=== PATIENT | female | born 1965 | race Caucasian/White ===

== ENCOUNTER 2021-11-18 08:23 | Observation (INO) ==
--- NOTE | 2021-11-18 08:42 | Emergency Department Note ---
Impression & Plan Anemia ADMIT ED Provider Note HPI: Patient is a 56-year-old female who currently resides at [facility] for alcohol detox, presents the emergency department with a chief complaint of dizziness and hypotension with positional changes. Patient states is been ongoing for about the past week. She states that several days ago she was getting out of the shower and felt as if she was going to pass out. Patient states that they have been taking her blood pressure when she has these episodes and it has been as low as 74 systolic. Patient was concerned about low blood pressure again today and therefore came to the ED for further assessment. On arrival patient is noted to be hypotensive at 98/64, pulse rate of 100, she is otherwise hemodynamically stable and saturating well on room air on my initial assessment. She is alert and oriented x3 and in no acute distress, denies any chest pain or shortness of breath. ROS: -General: Concern for hypotension -Neuro: Dizziness with positional changes *10 point review systems was conducted and is otherwise negative unless stated above *Outpatient medications and allergy history reviewed PE: General: Alert, NAD HEENT: Normocephalic, atraumatic Eyes: Extraocular eye movement is intact, no scleral erythema Pulmonary: Clear to auscultation bilaterally, no wheezing Cardio: Regular rate and rhythm GI: Abdomen is soft, nontender : No suprapubic tenderness MSK: No evidence of trauma or malformation of the extremities, no edema Skin: No evidence of rash Neuro: Alert, no focal deficits Psychiatric: Cooperative pvc monitor: - An order was placed for continuous cardiac monitoring - Patient was noted to be in sinus rhythm with rate of 80 EKG: Rate: 86 Rhythm: Normal sinus rhythm Intervals: Within normal limits ST changes: No ST elevation Time: 0834 Medical Decision Making: Patient presented to the emergency department with concern for hypotension at her rehabilitation facility where she is currently residing for the past several weeks for alcohol detox. She has had issues with dizziness mostly with positional changes, states she had an episode several days ago where she tells me that she nearly passed out. On arrival to the ED the patient is mildly tac hycardic at 100, blood pressure is in the 90s systolic, she is in no acute distress on my initial evaluation. IV was established, lab work obtained, patient was placed on equipment monitor phototypesetting, lab work shows leukocytosis of 14.6, slight left shift, anemia of 9.0 which is new from previous lab work that was done just 2 weeks ago when her hemoglobin was 12.0, patient denies any melena or blood per rectum. Denies any hematemesis. This is a normocytic anemia. Occult stool test was done at the bedside and is negative. Unclear source of the patient's anemia at this time. Patient was given IV fluid bolus and her initial repeat pressure was in the 80s systolic. Therefore she was ordered 2 units packed red blood cells for transfusion. Patient was consented at the bedside. On recheck pressure before transfusion is 100/65. Patient remains in no acute distress, saturating well on room air, heart rate is down trended with IV fluids. I discussed the above findings with the on-call hospitalist for [facility], Dr. Padilla, and the patient will be admitted to a telemetry bed for further management and diagnostic work-up of anemia with unknown source. She was ordered broad-spectrum antibiotics following a second fluid bolus which included vancomycin and cefepime as she does have a leukocytosis in addition to her hypotension and mild tachycardia on presentation. No obvious source for inf ection with negative chest x-ray, urinalysis pending, however given the patient's hypotension leukocytosis and presenting tachycardia I do feel it prudent to initiate broad-spectrum antibiotics, blood cultures were drawn prior to initiation of antibiotics. Patient was given 2 L normal saline bolus and none further over concern for possible blood loss anemia as a source of her hypotension, avoidance of hemodilution, and preference for packed red blood cell transfusion for potential volume depletion following the initial 2 L NSS bolus. Patient is in agreement to the above plan and she was admitted in stable condition for further care. * CRITICAL CARE TIME: ( 40 ) minutes -Management of symptomatic anemia with hypotension requiring packed red blood cell transfusion, initiation of broad-spectrum antibiotics for sepsis, time spent at the bedside, interpretation of diagnostic studies, discussion with other physicians and arrangement of admission Diagnosis: 1. Symptomatic anemia, acute, new onset 2. Hypotension 3. Leukocytosis 4. Hyperglycemia without evidence of DKA Disposition: Admission Ji Evans DO Emergency Medicine Past Med/Surg History Medical History (Updated 11/18/21 @ 10:03 by Ji Evans DO) Alcohol abuse Alcohol withdrawal Social History Smoking Status: Current every day smoker Tobacco Type: Cigarettes Preferred Language: Dutch Feels Safe at Home: Yes Allergies Allergies Allergy/AdvReac Type Severity Reaction Status Date / Time No Known Allergies Allergy Unverified 11/18/21 09:56 Home Meds Home Medications Medication Instructions Recorded Confirmed doxepin 25 mg capsule 25 mg PO HS 11/04/21 11/18/21 prazosin 1 tab PO HS 11/04/21 11/18/21 chlordiazepoxide HCl 25 mg capsule 0 mg PO DAILY 11/18/21 11/18/21 cyclobenzaprine 10 mg tablet 10 mg PO HS 11/18/21 11/18/21 diphenhydramine HCl 25 mg capsule 25 mg PO HS PRN 11/18/21 11/18/21 ibuprofen 200 mg tablet 200 mg PO Q6H PRN 11/18/21 11/18/21 Results & Data (ED) Vital Signs Vital Signs - 24 hr 11/18/21 08:27 11/18/21 08:58 11/18/21 08:59 Temperature 36.5 C Temperature Source Temporal Artery Scan Pulse Rate - Lying 85 Pulse Rate - Sitting 87 Pulse Rate - Standing 107 H Pulse Rate 100 H Respiratory Rate 18 Respiratory Effort / Characteristics Non-Labored Respiratory Depth Blood Pressure - Lying 98/62 L Blood Pressure - Sitting 91/63 L Blood Pressure- Standing 83/62 L Blood Pressure 98/64 L Blood Pressure Mean 75 Pulse Oximetry 98 Oxygen Delivery Method Room Air Room Air Sepsis Recent Fever Within 48 Hours No Sepsis New/Unexplained Change in Mental Status No Sepsis Action Taken by Nursing No Action Required 11/18/21 09:01 Temperature Temperature Source Oral Pulse Rate - Lying Pulse Rate - Sitting Pulse Rate - Standing Pulse Rate Respiratory Rate Respiratory Effort / Characteristics Respiratory Depth Normal Blood Pressure - Lying Blood Pressure - Sitting Blood Pressure- Standing Blood Pressure Blood Pressure Mean Pulse Oximetry Oxygen Delivery Method Room Air Sepsis Recent Fever Within 48 Hours Sepsis New/Unexplained Change in Mental Status Sepsis Action Taken by Nursing Laboratory Data Result diagrams: 11/18/21 08:50 11/18/21 08:50 Lab Results 11/18/21 11/18/21 11/18/21 Range/Units 08:50 08:50 08:50 WBC 14.68 H (4.8-10.8) K/uL RBC 2.88 L (4.2-5.4) M/uL Hgb 9.0 L (12.0-16.0) g/dL Hct 27.6 L (37-47) % MCV 95.8 (80-100) fL MCH 31.3 (25-34) pg MCHC 32.6 (32-36) g/dL RDW Std Deviation 55.1 H (36.4-46.3) fL RDW Coeff of Joel 15.8 H (11.5-14.5) % Plt Count 414 H (130-400) K/uL MPV 9.2 (7.4-10.4) fL Immature Gran % (Auto) 0.4 % Neut % (Auto) 81.6 % Lymph % (Auto) 11.2 % [place] % (Auto) 6.1 % Eos % (Auto) 0.4 % Baso % (Auto) 0.3 % Neut # (Auto) 11.98 H (1.4-6.5) K/uL Lymph # (Auto) 1.65 (1.2-3.4) K/uL [place] # (Auto) 0.89 H (0.11-0.59) K/uL Eos # (Auto) 0.06 (0-0.5) K/uL Baso # (Auto) 0.04 (0-0.2) K/uL Immature Gran # (Auto) 0.06 H (0.00-0.02) K/uL PT 11.6 (9.0-12.0) Seconds INR 1.1 (0.9-1.1) APTT 31.2 H (21.0-31.0) Seconds PTT Ratio 1.1 Sodium 133 L (136-145) mmol/L Potassium 4.4 (3.5-5.1) mmol/L Chloride 102 (98-107) mmol/L Carbon Dioxide 22 (21-32) mmol/L Anion Gap 9 (3-11) BUN 10 (6-23) mg/dl Creatinine 0.60 (0.6-1.2) mg/dl Est Cr Clr Drug Dosing 106.9 ml/min Est GFR ( Amer) 118.9 ml/min Est GFR (Non-Af Amer) 102.6 ml/min BUN/Creatinine Ratio 16.7 (10-20) Glucose 232 H (70-99(Fasting)) mg/dl Lactate (0.4-2.0) mmol/L Calcium 8.8 (8.5-10.1) mg/dl Magnesium 1.8 (1.7-2.4) mg/dl Total Bilirubin 0.4 (0.2-1.0) mg/dl AST 9 L (13-39) U/L ALT 7 (7-52) U/L Alkaline Phosphatase 120 H (34-104) U/L Total Protein 6.5 (6.0-8.3) gm/dl Albumin 3.1 L (3.4-5.0) gm/dl Globulin 3.4 (2.5-4.0) gm/dl Albumin/Globulin Ratio 0.9 (0.9-2) Procalcitonin (0-0.5) ng/ml Crossmatch 11/18/21 11/18/21 11/18/21 Range/Units 08:50 09:17 09:23 WBC (4.8-10.8) K/uL RBC (4.2-5.4) M/uL Hgb (12.0-16.0) g/dL Hct (37-47) % MCV (80-100) fL MCH (25-34) pg MCHC (32-36) g/dL RDW Std Deviation (36.4-46.3) fL RDW Coeff of Joel (11.5-14.5) % Plt Count (130-400) K/uL MPV (7.4-10.4) fL Immature Gran % (Auto) % Neut % (Auto) % Lymph % (Auto) % [place] % (Auto) % Eos % (Auto) % Baso % (Auto) % Neut # (Auto) (1.4-6.5) K/uL Lymph # (Auto) (1.2-3.4) K/uL [place] # (Auto) (0.11-0.59) K/uL Eos # (Auto) (0-0.5) K/uL Baso # (Auto) (0-0.2) K/uL Immature Gran # (Auto) (0.00-0.02) K/uL PT (9.0-12.0) Seconds INR (0.9-1.1) APTT (21.0-31.0) Seconds PTT Ratio Sodium (136-145) mmol/L Potassium (3.5-5.1) mmol/L Chloride (98-107) mmol/L Carbon Dioxide (21-32) mmol/L Anion Gap (3-11) BUN (6-23) mg/dl Creatinine (0.6-1.2) mg/dl Est Cr Clr Drug Dosing ml/min Est GFR ( Amer) ml/min Est GFR (Non-Af Amer) ml/min BUN/Creatinine Ratio (10-20) Glucose (70-99(Fasting)) mg/dl Lactate 1.0 (0.4-2.0) mmol/L Calcium (8.5-10.1) mg/dl Magnesium (1.7-2.4) mg/dl Total Bilirubin (0.2-1.0) mg/dl AST (13-39) U/L ALT (7-52) U/L Alkaline Phosphatase (34-104) U/L Total Protein (6.0-8.3) gm/dl Albumin (3.4-5.0) gm/dl Globulin (2.5-4.0) gm/dl Albumin/Globulin Ratio (0.9-2) Procalcitonin 0.10 (0-0.5) ng/ml Crossmatch See Detail Administered Medications Discontinued Medications Sodium Chloride (Nss 1000ml) 1,000 mls @ 999 mls/hr IV .Q1H1M TEJAL Stop: 11/18/21 09:45 Last Admin: 11/18/21 08:50 Dose: 999 mls/hr Documented by: [id number] Imaging Data Radiologist's Impression: Chest X-Ray 11/18/21 08:32 XR chest 1V portable CLINICAL HISTORY: SEPSIS TECHNIQUE: Single frontal radiograph of the chest was obtained. Comparison: Comparison is made to chest radiograph 11/04/2021 FINDINGS: No lines and tubes are seen. The cardiomediastinal silhouette is normal. The lungs are clear. No evidence of pleural effusion or pneumothorax. IMPRESSION: No acute abnormalities and in particular no evidence of pneumonia. ACT 112: Negative or not required by law. Electronically signed by: Lino Trotter M.D. 11/18/2021 9:07 AM Discharge Plan Visit Data Chief Complaint: Hypotension Stated Complaint: HYPOTENSITON,DIZZY,LIGHTHEADED,HEADACHE ED Provider: Ji Evans Discharge Problem: Anemia Forms Stand Alone Forms: My [facility] Prescriptions Prescriptions: No Action doxepin 25 mg capsule 25 mg PO HS RF: 0 prazosin 1 tab PO HS RF: 0 cyclobenzaprine [Flexeril] 10 mg Tablet 10 mg PO HS RF: 0 chlordiazepoxide HCl 25 mg capsule 0 mg PO DAILY RF: 0 diphenhydramine HCl 25 mg Capsule 25 mg PO HS PRN (Reason: Sleep) RF: 0 ibuprofen 200 mg Tablet 200 mg PO Q6H PRN (Reason: Pain) RF: 0 Referrals Referrals: PCP,NO [Physician] - Discharge Problem: Anemia Qualifiers: Anemia type: unspecified type Qualified Code(s): D64.9 - Anemia, unspecified
[2021-11-18] MEDS ORDERED: SODIUM CHLORIDE 0.9% 1000ML 1,000 ML IV SCH (08:45)
[2021-11-18 09:07] LABS: Basophils # (auto) 0.04 K/uL (0-0.2); Basophils % (auto) 0.3 %; Eosinophils # (auto) 0.06 K/uL (0-0.5); Eosinophils % (auto) 0.4 %; Hematocrit (blood only) 27.6 % (37-47); Immature Granulocytes # (auto) 0.06 K/uL (0.00-0.02); Immature Granulocytes % (auto) 0.4 %; Lymphocytes # (auto) 1.65 K/uL (1.2-3.4); Lymphocytes % (auto) 11.2 %; Mean Corpuscular Hemoglobin 31.3 pg (25-34); Mean Corpuscular Hgb Conc 32.6 g/dL (32-36); Mean Corpuscular Volume 95.8 fL (80-100); Mean Platelet Volume 9.2 fL (7.4-10.4); Monocytes # (auto) 0.89 K/uL (0.11-0.59); Monocytes % (auto) 6.1 %; Neutrophils # (auto) 11.98 K/uL (1.4-6.5); Neutrophils % (auto) 81.6 %; Platelet Count 414 K/uL (130-400); RDW Coefficient of Variation 15.8 % (11.5-14.5); RDW Standard Deviation 55.1 fL (36.4-46.3); Red Blood Count 2.88 M/uL (4.2-5.4); White Blood Count 14.68 K/uL (4.8-10.8)
--- NOTE | 2021-11-18 09:08 | XRay Report ---
XR chest 1V portable CLINICAL HISTORY: SEPSIS TECHNIQUE: Single frontal radiograph of the chest was obtained. Comparison: Comparison is made to chest radiograph 11/04/2021 FINDINGS: No lines and tubes are seen. The cardiomediastinal silhouette is normal. The lungs are clear. No evid ence of pleural effusion or pneumothorax. IMPRESSION: No acute abnormalities and in particular no evidence of pneumonia. ACT 112: Negative or not required by law. Electronically signed by: Lino Trotter M.D. 11/18/2021 9:07 AM
[2021-11-18 09:28] LABS: INR 1.1 (0.9-1.1); Partial Thromboplastin Ratio 1.1; Partial Thromboplastin Time 31.2 Seconds (21.0-31.0); Prothrombin Time 11.6 Seconds (9.0-12.0)
[2021-11-18 09:35] LABS: Albumin Globulin Ratio 0.9 (0.9-2); Albumin Level 3.1 gm/dl (3.4-5.0); BUN Creatinine Ratio 16.7 (10-20); Bilirubin,Total 0.4 mg/dl (0.2-1.0); Calcium 8.8 mg/dl (8.5-10.1); Creatinine Clr Calc Pharmacy 106.9 ml/min; Est GFR (African American) 118.9 ml/min; Est GFR (Non-African American) 102.6 ml/min; Globulin 3.4 gm/dl (2.5-4.0); Magnesium 1.8 mg/dl (1.7-2.4); Potassium 4.4 mmol/L (3.5-5.1); Total Protein 6.5 gm/dl (6.0-8.3)
[2021-11-18] MEDS ORDERED: SODIUM CHLORIDE 0.9% 250 ML IV PRN (09:36)
[2021-11-18] MEDS ORDERED: CEFEPIME 2,000 MG/20 ML VIAL IV STA (09:46)
[2021-11-18] MEDS ORDERED: VANCOMYCIN CONSULT ACTIVE PRN (09:46)
[2021-11-18] MEDS ORDERED: SODIUM CHLORIDE 0.9% 1000ML 1,000 ML IV ONE (09:46)
[2021-11-18] MEDS ORDERED: VANCOMYCIN HCL 1,500 MG in SODIUM CHLORIDE 0.9% 500 ML IV ONE (09:46)
--- NOTE | 2021-11-18 10:07 | History & Physical Report ---
Date of Service November 18, 2021 Assessment & Plan (1) Anemia: Plan: - Symptomatic, generalized weakness, dizziness, orthostatic hypotension x4 days. - Hgb 9.0, was 12.0 on 11/04. Normocytic. In the setting of daily NSAID use, history of alcohol abuse, as well as gastric bypass surgery in 2008 with development of gastric ulcer shortly after. - GI consult placed, did discuss the case with Dr. Gee who is recommending IV PPI twice daily and clear liquid diet for now. NPO at midnight for EGD in AM. - ED ordered two units pRBCs for transfusion. - Trend H/H 4 hours s/p transfusion. (2) Hypotension: Plan: - 2L NS in ED, hold off on further IVF as likely blood loss causing her hypotension. She is receiving blood transfusion. - Continue to monitor. (3) Leukocytosis: Plan: - WBC 14.68 with left shift, lactate 1.0, procalcitonin 0.10. No symptoms suggestive of infection or obvious source of infection based on labs and imaging collected, however urinalysis is still pending. - Treated empirically with vancomycin and cefepime in ED, given her elevated WBC and hypotension, tachycardia. Will hold off on further antibiotics until urinalysis is collected. - Blood cultures have been collected and sent. - Continue to trend on a.m. labs. (4) Alcohol abuse: Plan: - Vodka daily, last drink 11/04. She has been at [facility] alcohol rehabilitation since then. Likely out of withdrawal, reports she has been without withdrawal symptoms. - Continue clonidine, doxepin. (5) Compression fracture: Plan: - T12 and L1 vertebral fractures seen on lumbar XR from 11/04, has been taking Flexeril, as well as rotating between Tylenol and ibuprofen daily since then. - Holding ibuprofen, will continue Tylenol and Flexeril for pain control we will also order lidocaine patch. (6) Tobacco abuse: Plan: - Smokes 1/2 pack/day. - Nicotine patch ordered per patient request. (7) Insomnia: Plan: - States she has regularly been using melatonin and Benadryl for a long time for sleep. - Continue melatonin at night, Benadryl prn. Plan: - Admit to PCU. - SCDs for DVT PPx. - Full code. History of Present Illness Chief Complaint: hypotension Primary Care Provider: [facility] Ms. Boyer is a 56 y/o female with PMH of gastric bypass in 2008, alcohol and tobacco abuse, currently in outpatient rehab who presents today with several days of dizziness and hypotension. States on , she was in the shower when she felt dizzy and lightheaded. She was brought up to the nurses station at the facility, where they took her blood pressure and noticed it was low. They gave her salty snacks to bring it up, and since then had been checking her blood pressure at least daily and she states it has been ranging from as low as SBP 70s to 110s. She continues to be lightheaded with positional changes. She had an episode of nausea this morning before breakfast and has felt more weak in her lower extremities after walking distance she could previously tolerate, but otherwise denies any abdominal pain, ongoing nausea or vomiting, hematemesis, diarrhea, constipation, melena, or hematochezia. No fever chills, shortness of breath, chest pain, palpitations, dysuria, hematuria, increased urinary frequency, hesitancy, urinary retention. Was seen in our ED on 11/04 and had been diagnosed with compression fractures, has been rotating between ibuprofen and Tylenol regularly since then for pain control. She has history of gastric bypass surgery in 2008 followed shortly after by an ulcer around the side of the staple she reports. Reports they gave her Carafate, unaware of any other treatments she had for this at that time. Had an EGD and colonoscopy performed this past June 2021 at [facility] in [place], [place]. Was tested for celiac disease at the time due to family history, biopsy was negative for that. They also removed a polyp during colonoscopy, biopsied it came back as benign. Was no acute findings. Family history of brain cancer and grandfather, kidney cancer in brother, lymphoma in sister but no known history of esophageal, pancreatic, stomach, or colon cancer. In ED, she is hypotensive 98/54, tachycardic, HR 100, other vital signs wnl and stable. Labs significant for leukocytosis, WBC 14.68 with left shift procalcitonin 0.10, lactate 1.0. Hgb 9.0, normocytic, decreased from labs several weeks ago but this was 12.0. Coag panel within normal limits. Slightly hyponatremic sodium 133, glucose 232, alk phos 120. CXR did not show any acute abnormalities, no evidence for pneumonia. Blood cultures collected, sent. Patient's received broad-spectrum antibiotics of vancomycin and cefepime, as well as 2L NS bolus. Patient typed and crossed, consent completed in ED. Allergies Allergy/AdvReac Type Severity Reaction Status Date / Time No Known Allergies Allergy Unverified 11/18/21 09:56 Home Medications Medication Instructions Recorded Confirmed Type doxepin 25 mg capsule 25 mg PO HS 11/04/21 11/18/21 History prazosin 1 tab PO HS 11/04/21 11/18/21 History chlordiazepoxide HCl 25 mg capsule 0 mg PO DAILY 11/18/21 11/18/21 History cyclobenzaprine 10 mg tablet 10 mg PO HS 11/18/21 11/18/21 History diphenhydramine HCl 25 mg capsule 25 mg PO HS PRN 11/18/21 11/18/21 History ibuprofen 200 mg tablet 200 mg PO Q6H PRN 11/18/21 11/18/21 History Past Med/Surg History Medical History Alcohol abuse Alcohol withdrawal Anemia Compression fracture Social History Smoking Status: Current every day smoker Tobacco Type: Cigarettes Cigarettes Per Day: 1/2 pack; Do You Dip or Chew Tobacco: No; Hx Alcohol Use: Yes Alcohol type: hard liquor Hx Substance Use: No Preferred Language: Romanian Communication Ability: Effective Bundle Collector Required: No Beliefs That Will Affect Care: None Current Living Situation: Rehab Other Information That Helps Us Care for You: No Feels Safe at Home: Yes Safety Concerns: Feels Safe At This Time Assistive Devices: Glasses Review of Systems Review of Systems: Constitutional: Postural dizziness and bilateral lower extremity weakness with ambulation over the past week; no fever/chills, fatigue, myalgias, anorexia, night sweats Eyes: No diplopia, no worsening or blurred vision ENT: normal hearing, no trouble swallowing Respiratory: No cough, sputum, dyspnea at rest or on exertion Cardiovascular: No chest pain, tightness or palpitations Abdomen: No pain, nausea, vomiting, diarrhea or constipation : Denies dysuria, hematuria, increased urgency/frequency, urinary retention Musculoskeletal: No joint pain, calf pain, swelling Neurologic: No weakness, numbness/tingling, or balance problems Psychiatric: No anxiety or depression Skin: No rash or itch Physical Exam Physical Exam: General: awake, alert, no apparent distress Head: Normocephalic, atraumatic ENT: PERRL, EOMI, no pharyngeal exudate, mucous membranes moist Chest: Clear to auscultation, on room air, no adventitious breath sounds Cardiac: Regular rate and rhythm, no murmur, no JVD, normal peripheral pulses, good capillary refill Abdominal: NABS x 4 quadrants, soft, nontender to palpation, no rebound, guarding or tenderness Extremities: Normal inspection, no peripheral edema or erythema, calfs nonten sue to palpation Psych: Normal mood and affect Neuro: AAO x 3, strength intact bilaterally and rated 5/5, no motor deficits, speech is clear, no peripheral sensory deficits Skin: no rash or erythema Results & Data Results & Data ([facility]) Vital Signs (Past 12 Hours) Vital Signs Temp Pulse Resp BP Pulse Ox 11/18/21 08:27 36.5 C 100 H 18 98/64 L 98 Laboratory Results Abnormal lab results 11/18/21 11/18/21 11/18/21 Range/Units 08:50 08:50 08:50 WBC 14.68 H (4.8-10.8) K/uL RBC 2.88 L (4.2-5.4) M/uL Hgb 9.0 L (12.0-16.0) g/dL Hct 27.6 L (37-47) % RDW Std Deviation 55.1 H (36.4-46.3) fL RDW Coeff of Joel 15.8 H (11.5-14.5) % Plt Count 414 H (130-400) K/uL Neut # (Auto) 11.98 H (1.4-6.5) K/uL [place] # (Auto) 0.89 H (0.11-0.59) K/uL Immature Gran # (Auto) 0.06 H (0.00-0.02) K/uL APTT 31.2 H (21.0-31.0) Seconds Sodium 133 L (136-145) mmol/L Glucose 232 H (70-99(Fasting)) mg/dl AST 9 L (13-39) U/L Alkaline Phosphatase 120 H (34-104) U/L Albumin 3.1 L (3.4-5.0) gm/dl Crossmatch 11/18/21 Range/Units 09:23 WBC (4.8-10.8) K/uL RBC (4.2-5.4) M/uL Hgb (12.0-16.0) g/dL Hct (37-47) % RDW Std Deviation (36.4-46.3) fL RDW Coeff of Joel (11.5-14.5) % Plt Count (130-400) K/uL Neut # (Auto) (1.4-6.5) K/uL [place] # (Auto) (0.11-0.59) K/uL Immature Gran # (Auto) (0.00-0.02) K/uL APTT (21.0-31.0) Seconds Sodium (136-145) mmol/L Glucose (70-99(Fasting)) mg/dl AST (13-39) U/L Alkaline Phosphatase (34-104) U/L Albumin (3.4-5.0) gm/dl Crossmatch See Detail Diagnostic Findings Chest X-Ray 11/18/21 08:32 XR chest 1V portable CLINICAL HISTORY: SEPSIS TECHNIQUE: Single frontal radiograph of the chest was obtained. Comparison: Comparison is made to chest radiograph 11/04/2021 FINDINGS: No lines and tubes are seen. The cardiomediastinal silhouette is normal. The lungs are clear. No evidence of pleural effusion or pneumothorax. IMPRESSION: No acute abnormalities and in particular no evidence of pneumonia. ACT 112: Negative or not required by law. Electronically signed by: Lino Trotter M.D. 11/18/2021 9:07 AM ECG Additional Comments: Normal sinus rhythm Normal ECG When compared with ECG of 04-NOV-2021 18:47, No significant change was found Confirmed by Da Glez ([id number]) on 11/18/2021 10:21:38 AM. Code Status & VTE Plan Code Status Full Code. Supervising Physician Co-Signing Physician Notes I personally saw and examined the patient. I verified all baez points and agree with Myrna Otero PA-C with the following exceptions and/or additions: 56 year old with dizziness and hypotension while at alcohol rehabilitation. No symptoms or signs of infection. O/E WD/WN, no acute distress, HS1+2, no murmurs, Chest CTAB, Abdo SNT A/P Dizziness, ambulatory dysfunction - ?from blood loss, medications (doxepin/clonidine) or thiamine deficiency. Send B1 level and start thiamine supplementation following this. No infection signs or symptoms to keep antibiotics going. May need orthostatics prior to discharge. Acute blood loss anemia - unclear if dizziness from this. Agree with 1 unit packed RBCs ordered from ER. Pantoprazole 40mg IV BID. Consult GI. NPO @ midnight. PG Care Time/CCT Total # of Minutes Spent Total Time Spent with Patient: Total time spent is greater than 50% in coordination of care (as documented) at patient's floor/unit and/or counseling patient: Coding Level of Care Code 59346 Initial Inpt Care Lvl 3 Diagnoses Alcohol abuse F10.10 Anemia D64.9 Anemia type: unspecified type Compression fracture Leukocytosis D72.829 Hypotension I95.9 Tobacco abuse Z72.0 Insomnia G47.00 (1) Anemia Anemia type: unspecified type Qualified Code(s): D64.9 - Anemia, unspecified
--- NOTE | 2021-11-18 10:21 | Electrocardiogram Report ---
Test Reason : Blood Pressure : / mmHG Vent. Rate : 086 BPM Atrial Rate : 086 BPM P-R Int : 168 ms QRS Dur : 076 ms QT Int : 372 ms P-R-T Axes : 044 045 041 degrees QTc Int : 445 ms Normal sinus rhythm Normal ECG When compared with ECG of 04-NOV-2021 18:47, No significant change was found Confirmed by Da Glez ([id number]) on 11/18/2021 10:21:38 AM Referred By: Confirmed By:Da Glez
[2021-11-18] MEDS ORDERED: ACETAMINOPHEN 325 MG TAB PO PRN (11:40)
[2021-11-18 12:09] LABS: Appearance Urine Clear (Clear); Bilirubin Urine Negative (Negative); Blood Urine Negative (Negative); Color Urine Yellow; Glucose Urine UA Negative (Negative); Ketones Urine Negative (Negative); Leukocyte Esterase Urine Negative (Negative); Nitrite Urine Negative (Negative); Protein Urine Negative (Negative); Specific Gravity Urine 1.006 (1.000-1.030); Urobilinogen Urine Negative (Negative); pH Urine 5.5 (4.5-7.5)
[2021-11-18] MEDS ORDERED: NICOTINE 14 MG/24 HR PATCH TD SCH (12:10)
[2021-11-18] MEDS ORDERED: POLYETHYLENE (MIRALAX) 17 GM PACK PO PRN (12:10)
[2021-11-18] MEDS ORDERED: ONDANSETRON INJ 2 MG/ML 2 ML VIAL IV PRN (12:10)
[2021-11-18] MEDS ORDERED: diphenhydrAMINE Capsule 25 MG CAP PO PRN (12:10)
[2021-11-18] MEDS ORDERED: PANTOprazole 40 MG in SYRINGE 0 ML IV ONE (12:30)
[2021-11-18] MEDS: LIDOCAINE 5% 1 PATCH TD SCH (13:01)
--- NOTE | 2021-11-18 13:21 | Gastrointestinal Consultation ---
Date of Consultation November 18, 2021 Assessment & Plan (1) Symptomatic anemia: (2) History of gastric bypass: (3) Alcohol abuse: concern for PUD at this time given the NSAID use as well. recs: NPO post midnight EGD tomorrow morning to evaluate further protonix 40 mg IV BID supportive care, IVFs, transfuse prn strict alcohol cessation, outpatient alcohol rehab is needed Thank you for allowing me to participate in the care of this patient History of Present Illness Attending Physician: Tito Vela MD History of Present Illness 56 y/o female with PMH gastric bypass, alcohol abuse with last drink 11/04 (used to drink 1/2 gallon of vodka daily she says), here with symptomatic anemia. She was hypotensive and dizzy on arrival to the ER, improving now with IVFs and transfusion. Recently had back fractures and has been taking ibuprofen on/off for the last 1-2 weeks. EGD and colonoscopy in 06/2021 mostly unremarkable. Has hx PUD in the past. Also notes active smoking. No evidence of overt GI bleeding at this time. labs reviewed. Allergies Allergy/AdvReac Type Severity Reaction Status Date / Time No Known Allergies Allergy Unverified 11/18/21 09:56 Home Medications Medication Instructions Recorded Confirmed Type doxepin 25 mg capsule 25 mg PO HS 11/04/21 11/18/21 History prazosin 1 tab PO HS 11/04/21 11/18/21 History chlordiazepoxide HCl 25 mg capsule 0 mg PO DAILY 11/18/21 11/18/21 History cyclobenzaprine 10 mg tablet 10 mg PO HS 11/18/21 11/18/21 History diphenhydramine HCl 25 mg capsule 25 mg PO HS PRN 11/18/21 11/18/21 History ibuprofen 200 mg tablet 200 mg PO Q6H PRN 11/18/21 11/18/21 History Patient History Medical History Alcohol abuse Alcohol withdrawal Anemia Compression fracture Social History Smoking Status: Current every day smoker Tobacco Type: Cigarettes Cigarettes Per Day: 1/2 pack; Do You Dip or Chew Tobacco: No; Hx Alcohol Use: Yes Alcohol type: hard liquor Hx Substance Use: No Preferred Language: Greenlandic Communication Ability: Effective Quality Assurance Supervisor Body Required: No Beliefs That Will Affect Care: None Current Living Situation: Rehab Other Information That Helps Us Care for You: No Feels Safe at Home: Yes Safety Concerns: Feels Safe At This Time Assistive Devices: Glasses Review of Systems Constitutional: no fever, no chills and no weight loss Eyes: as per Subjective / HPI Ear, Nose, Mouth, Throat: as per Subjective / HPI Respiratory: no dyspnea and no dyspnea on exertion Cardiovascular: no chest pain and no palpitations Gastrointestinal: as per Subjective / HPI Musculoskeletal: no joint pain and no swelling Integumentary: no rash and no lesions Neurologic: no numbness and no paresthesia Psychiatric: no depression and no anxiety Endocrine: no fatigue Hematologic / Lymphatic: no easy bleeding and no easy bruising Physical Exam Constitutional: WD/WN, vitals as above Eyes: EOM intact bilaterally Neck: normal visual inspection Respiratory: normal respiratory effort, lungs clear to auscultation Cardiovascular: RRR, no murmur, no edema Gastrointestinal (Abdomen): Inspection/Auscultation: abdomen normal to inspection; abdomen not distended Percussion/Palpation: abdomen soft; abdomen nontender and no hepatosplenomegaly Musculoskeletal: Extremities: no cyanosis Gait: normal gait Skin: no rashes, warm and dry Neurologic: moves all extremities Psychiatric: A+Ox3, euthymic affect Results & Data ([facility]) Vital Signs (Past 12 Hours) Vital Signs Temp Pulse Pulse Resp BP BP BP 11/18/21 13:13 93 H 11/18/21 12:30 37.0 C 85 18 105/71 11/18/21 12:16 37.1 C 90 18 115/79 11/18/21 12:01 85 19 105/78 11/18/21 12:00 37.1 C 90 18 115/79 11/18/21 11:47 80 20 105/72 11/18/21 11:32 36.9 C 81 18 98/65 L 11/18/21 11:00 19 95/60 L 11/18/21 10:30 86 23 89/60 L 11/18/21 10:15 80 22 106/71 11/18/21 10:00 82 26 H 11/18/21 09:41 82 19 100/65 11/18/21 09:32 85 17 82/65 L 11/18/21 09:30 87 20 11/18/21 09:00 85 25 H 11/18/21 08:42 83/62 L 11/18/21 08:41 89 26 H 91/63 L 11/18/21 08:27 36.5 C 100 H 18 98/64 L Pulse Ox 11/18/21 13:13 11/18/21 12:30 98 11/18/21 12:16 93 11/18/21 12:01 95 11/18/21 12:00 99 11/18/21 11:47 98 11/18/21 11:32 98 11/18/21 11:00 95 11/18/21 10:30 11/18/21 10:15 11/18/21 10:00 11/18/21 09:41 11/18/21 09:32 11/18/21 09:30 11/18/21 09:00 11/18/21 08:42 11/18/21 08:41 11/18/21 08:27 98 PG Care Time/CCT Total # of Minutes Spent Total Time Spent with Patient: Total time spent is greater than 50% in coordination of care (as documented) at patient's floor/unit and/or counseling patient: Coding Level of Care Code 01070 Inpt Consult Level 4 Diagnoses Symptomatic anemia D64.9 History of gastric bypass Z98.84 Alcohol abuse F10.10
[2021-11-18] MEDS: CYCLOBENZAPRINE HCL 5 MG TAB PO PRN ×2 (14:19→19:37)
[2021-11-18 17:24] LABS: Hematocrit (blood only) 31.4 % (37-47); Hemoglobin 10.4 g/dL (12.0-16.0)
[2021-11-18] MEDS ORDERED: NICOTINE POLACRILEX 2 MG GUM MT PRN (19:00)
[2021-11-18] MEDS: NICOTINE 21 MG/24 HR TDSY TD SCH (19:32)
[2021-11-18] MEDS: PRAZOSIN HCL 1 MG CAP PO SCH (19:36)
[2021-11-18] MEDS: DOXEPIN HCL 25 MG CAPSULE PO SCH (19:36)
[2021-11-18] MEDS: PANTOprazole 40 MG in SYRINGE 0 ML IV SCH (19:37)
[2021-11-18] MEDS: MELATONIN 3 MG TAB PO PRN (19:38)
[2021-11-18] MEDS ORDERED: CYCLOBENZAPRINE HCL 10 MG TAB PO SCH (21:00)
[2021-11-18] MEDS ORDERED: PANTOprazole 40 MG in SYRINGE 0 ML IV SCH (21:00)
[2021-11-18] MEDS: diphenhydrAMINE Capsule 25 MG CAP PO PRN (21:13)
[2021-11-19] MEDS: CYCLOBENZAPRINE HCL 5 MG TAB PO PRN ×3 (03:07→20:26)
[2021-11-19 06:58] LABS: Basophils # (auto) 0.04 K/uL (0-0.2); Basophils % (auto) 0.4 %; Eosinophils # (auto) 0.08 K/uL (0-0.5); Eosinophils % (auto) 0.8 %; Hematocrit (blood only) 31.3 % (37-47); Hemoglobin 10.5 g/dL (12.0-16.0); Immature Granulocytes # (auto) 0.04 K/uL (0.00-0.02); Immature Granulocytes % (auto) 0.4 %; Lymphocytes # (auto) 1.89 K/uL (1.2-3.4); Lymphocytes % (auto) 18.8 %; Mean Corpuscular Hemoglobin 31.1 pg (25-34); Mean Corpuscular Hgb Conc 33.5 g/dL (32-36); Mean Corpuscular Volume 92.6 fL (80-100); Mean Platelet Volume 9.3 fL (7.4-10.4); Neutrophils # (auto) 7.29 K/uL (1.4-6.5); Neutrophils % (auto) 72.6 %; Platelet Count 318 K/uL (130-400); RDW Coefficient of Variation 16.7 % (11.5-14.5); RDW Standard Deviation 56.9 fL (36.4-46.3); Red Blood Count 3.38 M/uL (4.2-5.4); White Blood Count 10.04 K/uL (4.8-10.8)
--- NOTE | 2021-11-19 07:10 | Anesthesiology Consultation ---
Date of Service November 19, 2021 Assessment & Plan Chart Review Chart Review: Acceptable Risk for Surgery and Patient NOT seen in Pre Admission Testing Consults Requested none ASA ASA3 Proposed Anesthesia Anesthesia Type: General History Surgery Operation Date: 11/19/21 08:00 Proposed Procedures p Esophagogastroduodenoscopy - Ruben Gee MD Height/Weight Height: 5 ft 8 in Weight: 77 kg Allergies Allergy/AdvReac Type Severity Reaction Status Date / Time No Known Allergies Allergy Unverified 11/18/21 09:56 Medications Home Medications Medication Instructions Recorded Confirmed Last Taken doxepin 25 mg capsule 25 mg PO HS 11/04/21 11/18/21 11/17/21 prazosin 1 tab PO HS 11/04/21 11/18/21 11/17/21 chlordiazepoxide HCl 25 mg capsule 0 mg PO DAILY 11/18/21 11/18/21 Unknown cyclobenzaprine 10 mg tablet 10 mg PO HS 11/18/21 11/18/21 Unknown diphenhydramine HCl 25 mg capsule 25 mg PO HS PRN 11/18/21 11/18/21 Unknown ibuprofen 200 mg tablet 200 mg PO Q6H PRN 11/18/21 11/18/21 Unknown Active Medications Generic Name Dose Route Start Last Admin Trade Name Freq PRN Reason Stop Dose Admin Cyclobenzaprine HCl 5 mg 11/18/21 13:41 11/19/21 03:07 Cyclobenzaprine Hcl 5 Mg Tab PO 12/18/21 16:59 5 mg QID PRN Administration pain or back spasms Diphenhydramine HCl 25 mg 11/18/21 19:32 11/18/21 21:13 Diphenhydramine Capsule 25 Mg Cap PO 12/18/21 19:31 25 mg HS PRN Administration Sleep Doxepin HCl 25 mg 11/18/21 21:00 11/18/21 19:36 Doxepin Hcl 25 Mg Capsule PO 12/18/21 20:59 25 mg HS TEJAL Administration Pantoprazole Sodium 40 mg/ 10 mls @ 5 mls/min 11/18/21 21:00 11/18/21 19:37 Syringe IV 12/18/21 20:59 5 mls/min BID TEJAL Administration Lidocaine 1 patch 11/18/21 12:10 11/18/21 13:01 Lidocaine 5% 1 Patch TD 12/18/21 12:09 1 patch QAM TEJAL Administration Melatonin 3 mg 11/18/21 12:10 11/18/21 19:38 Melatonin 3 Mg Tab PO 12/18/21 12:09 3 mg HS PRN Administration Sleep Miscellaneous 1 ea 11/18/21 23:00 11/18/21 22:06 Remove Lidoderm Patch N/A 12/18/21 22:59 1 ea DAILY@2100 TEJAL Administration Nicotine 21 mg 11/18/21 19:30 11/18/21 19:32 Nicotine 21 Mg/24 Hr Tdsy TD 12/18/21 19:29 21 mg QAM TEJAL Administration Nicotine Polacrilex 1 piece 11/18/21 19:00 11/18/21 19:34 Nicotine Polacrilex 2 Mg Gum MT 12/18/21 18:59 1 piece PRN PRN Administration nicotine cravings Prazosin HCl 1 mg 11/18/21 21:00 11/18/21 19:36 Prazosin Hcl 1 Mg Cap PO 12/18/21 20:59 1 mg HS TEJAL Administration Past Medical History Medical History Alcohol abuse Alcohol withdrawal Anemia Compression fracture Exercise / Class Metabolic Activity II 4-5 Yardwork/Stairs/Walk up hill Past Anesthesia History No Hx of Anesthesia Complications and No Family Hx of Anesthesia Complications History of PONV No Hx of PONV and No Hx of Motion Sickness Social History Smoking Status: Current every day smoker tobacco type: cigarettes Smoking cigarettes per day: 1/2 pack Do You Dip or Chew Tobacco: No Hx Alcohol Use: Yes Alcohol type: hard liquor alcohol intake frequency: 3 or more drinks per day Alcohol Intake Frequency Comment: drinks 1/2 gallon vodka every 1-2 days. last drink November 04 2021 Hx Substance Use: No substance use type: does not use Physical Exam Vital Signs Last Vital Signs Temp 37.5 C 11/19/21 03:02 Pulse 76 11/19/21 03:02 Resp 18 11/19/21 03:02 BP 147/92 H 11/19/21 03:02 Pulse Ox 97 11/19/21 03:02 Testing Laboratory Results 11/19/21 06:38 PT 11.6 Seconds (9.0-12.0) 11/18/21 08:50 INR 1.1 (0.9-1.1) 11/18/21 08:50 APTT 31.2 Seconds (21.0-31.0) H 11/18/21 08:50 Urine Color Yellow 11/18/21 10:05 Urine Appearance Clear (Clear) 11/18/21 10:05 Urine pH 5.5 (4.5-7.5) 11/18/21 10:05 Ur Specific [place] 1.006 (1.000-1.030) 11/18/21 10:05 Urine Protein Negative (Negative) 11/18/21 10:05 Urine Glucose (UA) Negative (Negative) 11/18/21 10:05 Urine Ketones Negative (Negative) 11/18/21 10:05 Urine Nitrite Negative (Negative) 11/18/21 10:05 Ur Leukocyte Esterase Negative (Negative) 11/18/21 10:05 Blood Type A Positive 11/18/21 09:23 Antibody Screen NEGATIVE 11/18/21 09:23 Electrocardiogram Date: 11/18/21 Findings: + NSR @ (at 86) Chest X-Ray Date: 11/18/21 Findings: + NAD
[2021-11-19] MEDS ORDERED: MIDAZOLAM HCL 1 MG/ML 2ML VIAL ONE ×2 (07:11→08:13)
[2021-11-19] MEDS ORDERED: PROPOFOL IV EMULSION 10 MG/ML 20 ML VIAL IV ONE (07:11)
[2021-11-19] MEDS ORDERED: fentaNYL citrate 100 MCG/2 ML VIAL ONE ×2 (07:11→08:45)
[2021-11-19] MEDS ORDERED: LIDOCAINE 2% 2 ML VIAL/AMP(20MG/ML) INFIL ONE (07:16)
[2021-11-19] MEDS ORDERED: SUCCINYLCHOLINE 100MG/5ML SYR IV ONE (07:16)
[2021-11-19 07:23] LABS: Albumin Globulin Ratio 0.9 (0.9-2); Albumin Level 2.9 gm/dl (3.4-5.0); Bilirubin,Total 0.5 mg/dl (0.2-1.0); Calcium 8.7 mg/dl (8.5-10.1); Creatinine Clr Calc Pharmacy 173.5 ml/min; Est GFR (African American) 135.9 ml/min; Est GFR (Non-African American) 117.3 ml/min; Globulin 3.3 gm/dl (2.5-4.0); Potassium 3.9 mmol/L (3.5-5.1); Total Protein 6.2 gm/dl (6.0-8.3)
[2021-11-19] MEDS ORDERED: ONDANSETRON INJ 2 MG/ML 2 ML VIAL IV PRN (07:48)
[2021-11-19] MEDS ORDERED: ATROPINE SULFATE 0.1 MG/ML 10ML SYR IV PRN (07:48)
[2021-11-19] MEDS ORDERED: LABETALOL HCL IV 5 MG/ML 20ML IV PRN (07:48)
[2021-11-19] MEDS ORDERED: NALOXONE HCL 0.4 MG/1 ML VIAL/CARP IV PRN (07:48)
[2021-11-19] MEDS ORDERED: PROMETHAZINE HCL 12.5 MG in SODIUM CHLORIDE 0.9% 50 ML IV PRN (07:48)
[2021-11-19] MEDS ORDERED: FLUMAZENIL 0.1 MG/1 ML 10 ML VIAL IV PRN (07:48)
--- NOTE | 2021-11-19 07:58 | History & Physical Bridge Note ---
Date of Service November 19, 2021 History & Physical Bridge Note I have examined the patient, reviewed the History & Physical and in the interval since the performance of the History & Physical I have noted the following changes of clinical significance: no changes noted Proceed with EGD. risks/benefits and procedure discussed with patient, who agrees to proceed
[2021-11-19] MEDS ORDERED: ONDANSETRON INJ 2 MG/ML 2 ML VIAL ONE (08:21)
[2021-11-19] MEDS ORDERED: DEXAMETHASONE SOD INJ 4 MG/ML VIAL ONE (08:29)
--- NOTE | 2021-11-19 08:33 | Procedure Note ---
Procedure Note Date of Service November 19, 2021 Note GI brief procedure note EGD findings: anastomotic ulcer, bleeding on contact, treated with epinephrine 4 cc and 2 clips. history of prior bypass is noted. recs: continue protonix 40 mg BID clear liquid diet as tolerated today, can advance to solid food tonight if stable supportive care, IVFs strict NSAID avoidance and alcohol cessation going forward Ruben Gee MD Gastroenterology Coding
--- NOTE | 2021-11-19 08:38 | GI REPORT ---
Patient Name: Naa Boyer Procedure Date: 11/19/2021 7:52 AM Date of : 1965 Admit Type: Inpatient Age: 56 Gender: Female Attending MD: Ruben Gee MD Procedure: Upper GI endoscopy Providers: Ruben Gee MD Referring MD: Tito Vela Md Indications: Acute post hemorrhagic anemia Medicines: Monitored Anesthesia Care Complications: No immediate complications. Estimated blood loss: None. Estimated Blood Loss: Estimated blood loss: none. Procedure: Pre-Anesthesia Assessment: - Prior Anticoagulants: The patient has taken no previous anticoagulant or antiplatelet agents. - ASA Grade Assessment: III - A patient with severe systemic disease. After obtaining informed consent, the endoscope was passed under direct vision. Throughout the procedure, the patient's blood pressure, pulse, and oxygen saturations were monitored continuously. The Endoscope was introduced through the mouth, and advanced to the second part of duodenum. The upper GI endoscopy was accomplished without difficulty. The patient tolerated the procedure well. Findings: The examined esophagus was normal. One bleeding on contact gastric ulcer was found at the anastomosis. Area was successfully injected with 4 mL of a 1:10,000 solution of epinephrine for hemostasis. For hemostasis, two hemostatic clips were successfully placed. There was no bleeding at the end of the procedure. evidence of prior gastric bypass surgery is noted. The examined duodenum was normal. Impression: - Normal esophagus. - Bleeding on contact gastric ulcer. Injected. Clips were placed. - Normal examined duodenum. - No specimens collected. Recommendation: - [facility]. - Clear liquid diet today. can advance to solid food tonight if stable. -protonix 40 mg BID -supportive care -strict avoidance of alcohol and NSAIDS Ruben Gee MD 11/19/2021 8:37:35 AM This report has been signed electronically. Note Initiated On: 11/19/2021 7:52 AM Number of Addenda: 0 I attest to the content of the Intraoperative Record and orders documented therein, exceptions below {[id number]}
[2021-11-19] MEDS: fentaNYL citrate 100 MCG/2 ML VIAL IV PRN ×2 (08:47→08:54)
[2021-11-19] MEDS ORDERED: METOCLOPRAMIDE HCL INJ 5 MG/ML 2 ML VIAL ONE (09:03)
[2021-11-19] MEDS ORDERED: SODIUM CHLORIDE 0.9% 50 ML BAG ONE (09:06)
[2021-11-19] MEDS ORDERED: PROMETHAZINE HCL INJ 25 MG/ML 1 ML VIAL ONE (09:07)
--- NOTE | 2021-11-19 09:37 | Anesthesiology Progress Note ---
Date of Service November 19, 2021 Anesthesia Post Procedure Vital Signs Vital Signs: Temp Pulse Pulse Pulse Resp BP BP 11/19/21 09:20 97 H 26 H 145/91 H 11/19/21 09:10 98 H 20 149/94 H 11/19/21 09:00 99 H 15 143/88 H 11/19/21 08:50 107 H 26 H 126/98 11/19/21 08:40 36.8 C 113 H 20 142/84 H 11/19/21 07:56 91 H 11/19/21 07:48 37.0 C 83 18 132/74 11/19/21 03:02 37.5 C 76 18 147/92 H 11/18/21 22:39 37.7 C H 89 18 103/65 11/18/21 22:18 96 H 11/18/21 19:09 37.7 C H 89 18 121/78 11/18/21 16:16 37.2 C 94 H 18 124/72 11/18/21 15:42 102 H 11/18/21 15:10 37.2 C 89 18 123/72 11/18/21 14:40 37.3 C 83 18 122/82 11/18/21 14:25 37.4 C 81 18 120/80 11/18/21 14:10 37.5 C 81 18 113/79 11/18/21 13:40 36.9 C 85 18 115/67 11/18/21 13:13 93 H 11/18/21 12:30 37.0 C 85 18 105/71 11/18/21 12:16 37.1 C 90 18 115/79 11/18/21 12:01 85 19 105/78 11/18/21 12:00 37.1 C 90 18 115/79 11/18/21 11:47 80 20 105/72 11/18/21 11:32 36.9 C 81 18 98/65 L 11/18/21 11:00 19 11/18/21 10:30 86 23 89/60 L 11/18/21 10:15 80 22 106/71 11/18/21 10:00 82 26 H 11/18/21 09:41 82 19 100/65 BP Pulse Ox 11/19/21 09:20 96 11/19/21 09:10 96 11/19/21 09:00 97 11/19/21 08:50 100 11/19/21 08:40 100 11/19/21 07:56 11/19/21 07:48 95 11/19/21 03:02 97 11/18/21 22:39 94 11/18/21 22:18 11/18/21 19:09 94 11/18/21 16:16 99 11/18/21 15:42 11/18/21 15:10 98 11/18/21 14:40 98 11/18/21 14:25 100 11/18/21 14:10 99 11/18/21 13:40 98 11/18/21 13:13 11/18/21 12:30 98 11/18/21 12:16 93 11/18/21 12:01 95 11/18/21 12:00 99 11/18/21 11:47 98 11/18/21 11:32 98 11/18/21 11:00 95/60 L 95 11/18/21 10:30 11/18/21 10:15 11/18/21 10:00 11/18/21 09:41 Pain Intensity Abdomen: Pain Intensity: 5 Transfer of Care Handoff Completed per policy Notes Mental Status: alert / awake / arousable Patient Amnestic to Procedure: Yes Nausea / Vomiting: adequately controlled Pain: adequately controlled Airway Patency, RR, SpO2: stable & adequate BP & HR: stable & adequate Hydration State: stable & adequate Anesthetic Complications: no major complications apparent
[2021-11-19] MEDS: PANTOprazole 40 MG in SYRINGE 0 ML IV SCH ×2 (09:45→20:27)
[2021-11-19] MEDS: NICOTINE 21 MG/24 HR TDSY TD SCH (09:45)
[2021-11-19] MEDS: LIDOCAINE 5% 1 PATCH TD SCH (09:46)
[2021-11-19] MEDS: THIAMINE HCL 500 MG in SODIUM CHLORIDE 0.9% 50 ML IV SCH (09:48)
--- NOTE | 2021-11-19 12:43 | Hospitalist Progress Note ---
Date of Service November 19, 2021 Assessment & Plan (1) Upper GI bleed: Plan: EGD on 11/19 with small ulcer seen at her prior gastric bypass anastomosis. Injected and clipped with hemostasis acheived. - Continue PPI PO BID x 4-6 weeks - F/u with GI outpatient - Strict avoidance of NSAIDs and alcohol which was discussed with the patient. - Advance to normal diet tonight. Discharge tomorrow if stable. (2) Anemia: Plan: Acute blood loss anemia. - Hgb 9.0, was 12.0 on 11/04. S/p 2 units PRBCs with improved hgb. - Will give dose of IV iron tomorrow before d/c. (3) Hypotension: Plan: Due to GI bleeding. Normalized now after IV fluids and 2 units PRBCs. - Continue to monitor. (4) Leukocytosis: Plan: - WBC 14.68 with left shift. Likely reactive from GI bleed. Blood cultures from 11/18 negative so far. - Normalized on 11/19. (5) Alcohol abuse: Plan: Vodka daily, last drink 11/04. She has been at [facility] alcohol rehabilitation since then. Likely out of withdrawal, reports she has been wi thout withdrawal symptoms. - Continue clonidine, doxepin. (6) Compression fracture: Plan: T12 and L1 vertebral fractures seen on lumbar XR from 11/04, has been taking Flexeril, as well as rotating between Tylenol and ibuprofen daily since then. - Holding ibuprofen, will continue Tylenol and Flexeril for pain control we will also order lidocaine patch. (7) Tobacco abuse: Plan: Smokes 1/2 pack/day. - Nicotine patch ordered per patient request. (8) Insomnia: Plan: States she has regularly been using melatonin and Benadryl for a long time for sleep. - Continue melatonin at night, Benadryl prn. Admission and Anticipated Discharge Date Admission Date: November 18, 2021 Subjective Doing well today. Hungry. No abdominal pain. Reports no fevers/chills, chest pain, shortness of breath, abdominal pain, nausea, or vomiting. Physical Exam Constitutional: WD/WN, vitals as above Eyes: EOM intact bilaterally; no conjunctival abnormality ENMT: external ear and nose normal, oropharynx normal Neck: trachea midline, no thyromegaly normal visual inspection Respiratory: normal respiratory effort, lungs clear to auscultation no respiratory distress Cardiovascular: RRR, no murmur, no edema Gastrointestinal (Abdomen): Inspection/Auscultation: abdomen normal to inspection; abdomen not distended Musculoskeletal: no cyanosis or clubbing, extremities motor strength 5/5 Skin: no rashes, warm and dry Neurologic: moves all extremities and awake Psychiatric: Orientation: alert, oriented to person and cooperative Results & Data Results & Data ([facility]) Vital Signs (Past 12 Hours) Vital Signs Temp Pulse Pulse Pulse Resp BP Pulse Ox 11/19/21 11:32 36.9 C 93 H 16 115/76 94 11/19/21 09:40 36.8 C 95 H 18 136/86 95 11/19/21 09:20 97 H 26 H 145/91 H 96 11/19/21 09:10 98 H 20 149/94 H 96 11/19/21 09:00 99 H 15 143/88 H 97 11/19/21 08:50 107 H 26 H 126/98 100 11/19/21 08:40 36.8 C 113 H 20 142/84 H 100 11/19/21 07:56 91 H 11/19/21 07:48 37.0 C 83 18 132/74 95 11/19/21 03:02 37.5 C 76 18 147/92 H 97 PG Care Time/CCT Total # of Minutes Spent Total Time Spent with Patient: Total time spent is greater than 50% in coordination of care (as documented) at patient's floor/unit and/or counseling patient: Coding Level of Care Code 98257 Subseq Hosp Care Lvl 3 Diagnoses Anemia D64.9 Anemia type: unspecified type Hypotension I95.9 Leukocytosis D72.829 Alcohol abuse F10.10 Compression fracture Tobacco abuse Z72.0 Insomnia G47.00 Upper GI bleed K92.2 (1) Anemia Anemia type: unspecified type Qualified Code(s): D64.9 - Anemia, unspecified
[2021-11-19] MEDS: DOXEPIN HCL 25 MG CAPSULE PO SCH (20:26)
[2021-11-19] MEDS: MELATONIN 3 MG TAB PO PRN (20:26)
[2021-11-19] MEDS: diphenhydrAMINE Capsule 25 MG CAP PO PRN (20:26)
[2021-11-19] MEDS: PRAZOSIN HCL 1 MG CAP PO SCH (20:27)
[2021-11-20 05:58] LABS: Hematocrit (blood only) 30.3 % (37-47); Hemoglobin 10.2 g/dL (12.0-16.0); Mean Corpuscular Hemoglobin 31.5 pg (25-34); Mean Corpuscular Hgb Conc 33.7 g/dL (32-36); Mean Corpuscular Volume 93.5 fL (80-100); Mean Platelet Volume 9.3 fL (7.4-10.4); Platelet Count 343 K/uL (130-400); RDW Coefficient of Variation 15.7 % (11.5-14.5); RDW Standard Deviation 54.1 fL (36.4-46.3); Red Blood Count 3.24 M/uL (4.2-5.4); White Blood Count 13.03 K/uL (4.8-10.8)
[2021-11-20] MEDS: CYCLOBENZAPRINE HCL 5 MG TAB PO PRN (06:02)
[2021-11-20] MEDS: LIDOCAINE 5% 1 PATCH TD SCH (08:29)
[2021-11-20] MEDS: PANTOprazole 40 MG in SYRINGE 0 ML IV SCH (08:29)
[2021-11-20] MEDS: NICOTINE 21 MG/24 HR TDSY TD SCH (08:29)
[2021-11-20] MEDS: THIAMINE HCL 500 MG in SODIUM CHLORIDE 0.9% 50 ML IV SCH (08:34)
[2021-11-20] MEDS ORDERED: DOXEPIN HCL 25 MG CAPSULE PO ONE (08:51)
--- NOTE | 2021-11-20 13:34 | Discharge Summary ---
Date of Service November 20, 2021 Admission HPI Per Admitting Provider Ms. Boyer is a 56 y/o female with PMH of gastric bypass in 2008, alcohol and tobacco abuse, currently in outpatient rehab who presents today with several days of dizziness and hypotension. States on , she was in the shower when she felt dizzy and lightheaded. She was brought up to the nurses station at the facility, where they took her blood pressure and noticed it was low. They gave her salty snacks to bring it up, and since then had been checking her blood pressure at least daily and she states it has been ranging from as low as SBP 70s to 110s. She continues to be lightheaded with positional changes. She had an episode of nausea this morning before breakfast and has felt more weak in her lower extremities after walking distance she could previously tolerate, but otherwise denies any abdominal pain, ongoing nausea or vomiting, hematemesis, diarrhea, constipation, melena, or hematochezia. No fever chills, shortness of breath, chest pain, palpitations, dysuria, hematuria, increased urinary f requency, hesitancy, urinary retention. Was seen in our ED on 11/04 and had been diagnosed with compression fractures, has been rotating between ibuprofen and Tylenol regularly since then for pain control. She has history of gastric bypass surgery in 2008 followed shortly after by an ulcer around the side of the staple she reports. Reports they gave her Carafate, unaware of any other treatments she had for this at that time. Had an EGD and colonoscopy performed this past June 2021 at [facility] in [place], [place]. Was tested for celiac disease at the time due to family history, biopsy was negative for that. They also removed a polyp during colonoscopy, biopsied it came back as benign. Was no acute findings. Family history of brain cancer and grandfather, kidney cancer in brother, lymphoma in sister but no known history of esophageal, pancreatic, stomach, or colon cancer. In ED, she is hypotensive 98/54, tachycardic, HR 100, other vital signs wnl and stable. Labs significant for leukocytosis, WBC 14.68 with left shift procalcitonin 0.10, lactate 1.0. Hgb 9.0, normocytic, decreased from labs several weeks ago but this was 12.0. Coag panel within normal limits. Slightly hyponatremic sodium 133, glucose 232, alk phos 120. CXR did not show any acute abnormalities, no evidence for pneumonia. Blood cultures collected, sent. Patient's received broad-spectrum antibiotics of vancomycin and cefepime, as well as 2L NS bolus. Patient typed and crossed, consent completed in ED. Principal Diagnosis Upper GI bleed from gastric ulcer Discharge Exam Constitutional WD/WN, vitals as above Eyes EOM intact bilaterally; no conjunctival abnormality ENMT external ear and nose normal, oropharynx normal Neck trachea midline, no thyromegaly normal visual inspection Respiratory normal respiratory effort, lungs clear to auscultation no respiratory distress Cardiovascular RRR, no murmur, no edema Gastrointestinal (Abdomen) Inspection/Auscultation: abdomen normal to inspection; abdomen not distended Musculoskeletal no cyanosis or clubbing, extremities motor strength 5/5 Skin no rashes, warm and dry Neurologic moves all extremities and awake Psychiatric Orientation: alert, oriented to person and cooperative Discharge Data Allergies Allergy/AdvReac Type Severity Reaction Status Date / Time No Known Allergies Allergy Unverified 11/18/21 09:56 Consultations 11/18/21 09:54 ED Decision to Admit Stat 11/18/21 12:10 Consult Gastroenterology Routine Procedures Performed Operation Date: 11/19/21 08:00 Actual Procedures p Esophagogastroduodenoscopy - Ruben Gee MD Hospital Course (1) Upper GI bleed: EGD on 11/19 with small ulcer seen at her prior gastric bypass anastomosis. Injected and clipped with hemostasis acheived. - Continue PPI PO BID x 4-6 weeks - F/u with GI outpatient - Strict avoidance of NSAIDs and alcohol which was discussed with the patient. - Advanced to normal diet prior to discharge with no issues. (2) Anemia: Acute blood loss anemia. - Hgb 9.0, was 12.0 on 11/04. S/p 2 units PRBCs with improved hgb. Stable at 10.2 on discharge. (3) Hypotension: Due to GI bleeding. Normalized after IV fluids and 2 units PRBCs. - Continue to monitor. (4) Leukocytosis: - WBC 14.68 with left shift. Likely reactive from GI bleed. Blood cultures from 11/18 negative so far. - Normalized on 11/19, then 13.0 on 11/20. No fevers, patient felt well, blood cultures negative. Unclear cause, but no role for antibiotics unless focal infection found. (5) Alcohol abuse: Vodka daily, last drink 11/04. She has been at [facility] alcohol rehabilitation since then. Likely out of withdrawal, reports she has been without withdrawal symptoms. - Continue clonidine, doxepin. (6) Compression fracture: T12 and L1 vertebral fractures seen on lumbar XR from 11/04, has been taking Flexeril, as well as rotating between Tylenol and ibuprofen daily since then. - Holding ibuprofen, will continue Tylenol and Flexeril for pain control we will also order lidocaine patch. (7) Tobacco abuse: Smokes 1/2 pack/day. - Nicotine patch ordered per patient request. (8) Insomnia: States she has regularly been using melatonin and Benadryl for a long time for sleep. - Continue melatonin at night, Benadryl prn. Total Time Total Time Spent Total Time Spent (In Minutes): 35 Discharge Plan Discharge Items Patient Disposition: Drug & Alcohol Rehab Reason For Visit: HYPOTENSION SUSPECT 2ND TO ANEMIA Discharge Diagnosis: GI bleed from gastric ulcer Activity: Resume your previous activity Non-emergency contact: Primary Care Provider and Licensed Staff Mft Call non-emergency contact if: your symptoms worsen Follow-up/Referrals: [facility] [Primary Care Provider] - Diet: Regular Addtl Attending Provider Instructions: Ms. Boyer, You were admitted to the hospital with a GI bleed from a gastric ulcer at the junction of your gastric bypass. You needed two units of blood, but did well after that. You got two clips to help stop the bleeding. You are doing well enough now to be discharged. Please avoid all NSAID medications (ibuprofen, Aleve, naproxen, Motrin, etc.). Please avoid alcohol. Please take the pantoprazole twice a day for 6 weeks and follow up with your normal GI doctor after you are done with rehab. You can use Tylenol (within the bottle recommendations) and lidocaine patches for your back pain. Pending Studies at Discharge: No Stand-Alone Forms: My [facility] Skilled Items Patient informed of condition?: Yes DNR: No Discharge Level of Care: Other Communicable Disease: No Discharge Prognosis: Improving Lines: None Urinary Catheter: No Medications and DC Order Prescriptions: New lidocaine 4 % adhesive patch,medicated 1 patch topical DAILY PRN (Reason: pain) Qty: 15 RF: 0 pantoprazole 40 mg tablet,delayed release (DR/EC) 40 mg PO BID Qty: 60 RF: 1 Continued doxepin 25 mg capsule 25 mg PO HS RF: 0 prazosin 1 tab PO HS RF: 0 cyclobenzaprine 10 mg Tablet 10 mg PO HS RF: 0 chlordiazepoxide HCl 25 mg capsule 0 mg PO DAILY RF: 0 diphenhydramine HCl 25 mg Capsule 25 mg PO HS PRN (Reason: Sleep) RF: 0 Discontinued ibuprofen 200 mg Tablet 200 mg PO Q6H PRN (Reason: Pain) RF: 0 Discharge Orders: Discharge Order (Routine); Ordered 11/20/21 Ordered By: Chang Boyd/Other Patient Handouts: Pantoprazole Delayed Release Oral Tablet 40 mg Admission Data Admit Date/Time: 11/18/21 10:55 Attending Provider: Chang Torres Admit Provider: Tito Vela Primary Care Provider: [facility] Other Providers: Chang Torres ; Tito Padilla ; Ruben Gee Other Interventions: Discharge Summary Assessment (RN) Last Done: 11/20/21 09:46 Coding Level of Care Code D/C DAY MANAGEMENT >30 MINS Diagnoses Upper GI bleed K92.2 Anemia D64.9 Anemia type: unspecified type Hypotension I95.9 Leukocytosis D72.829 Alcohol abuse F10.10 Compression fracture Tobacco abuse Z72.0 Insomnia G47.00
== END 2021-11-20 12:30 | disposition alcohol treatment (31) | DRG 378 ==
LOC: ED 08:23 → INTOOBSV 10:55 → SUATTDRO 10:55 → 2S 10:55